=== PATIENT | female | born 1965 | race Caucasian/White ===

== ENCOUNTER → 2020-12-30 | Outpatient (CLI) | payer MEDICAID ==
[~2020-12-30] MED LIST: HOLD METFORMIN - RECEIVED CONTRAST 20 ML VIAL IV SCH; IOHEXOL 350 MG/ML 100 ML (OMNIPAQUE 350) VIAL IV ONE; NS 100 ML (IVPB) BAG IV ONE
--- NOTE | 2020-12-30 14:46 | Diagnostic Imaging Report ---
EXAMINATION: CT chest with intravenous contrast. TECHNIQUE: Multiple contiguous axial images were obtained through the chest after the uneventful administration of intravenous contrast. All CT scans use one or more of the following dose optimizing techniques: automated exposure control, MA and/or KvP adjustment based on patient size and exam type or iterative reconstruction. HISTORY: Lung cancer COMPARISON: None available. FINDINGS: There is no edema or pneumonia. No pleural effusion. No pneumothorax. No suspicious nodules. There is no axillary or supraclavicular lymphadenopathy. There is no mediastinal lymphadenopathy. Heart size is normal. There are no coronary artery calcifications. No pericardial effusion. Aorta is normal in caliber. Coronary artery bypass grafting. Limited views of the upper abdomen show changes of cholecystectomy. There are no suspicious osseus lesions. Chronic appearing mild L2 compression fracture. IMPRESSION: 1. No acute abnormality in the chest. Dictated by: Dictated on workstation # [id number]
== END ==
PROVIDERS: ATTEND Emergency Medicine
DX: C34.11 Malignant neoplasm of upper lobe, right bronchus or lung (principal)
CPT/HCPCS: 71260

== ENCOUNTER → 2021-04-27 | Outpatient (CLI) | payer MEDICAID ==
--- NOTE | 2021-04-27 15:06 | Diagnostic Imaging Report ---
INDICATION: Back pain. AP and lateral views of the lumbar spine are obtained. COMPARISON: There is no prior study for comparison. FINDINGS: There is mild dextroscoliotic change. There is a compression deformity of L1 of uncertain age. There is disc space narrowing at L2-L3 with osteophyte formation and degenerative endplate change. There is mild facet degenerative change of the lower lumbar spine. IMPRESSION: L1 compression fracture of indeterminate age. If there is focal pain in this area, MRI may be beneficial. There is underlying degenerative change at L2-L3 with disc space narrowing, osteophyte formation, and degenerative endplate change. Dictated by: Dictated on workstation # [id number]
--- NOTE | 2021-04-27 15:55 | Diagnostic Imaging Report ---
INDICATION: Pain in the neck. COMPARISON: No relevant comparison. FINDINGS: Odontoid is intact. Its relationship to the lateral masses of C1 is anatomic. There are degenerative changes to the discs, endplates, and facets, greatest at C5-C6 and C6-C7 where there is mild reversal of the normal lordosis. Vertebral statures themselves are normal. No fracture. The prevertebral space is normal. IMPRESSION: Predominantly lower cervical spondylosis results in mild reversal of lordosis, but no listhesis and no acute appearing bony abnormality. Dictated by: Dictated on workstation # [id number]
--- NOTE | 2021-04-27 15:58 | Diagnostic Imaging Report ---
INDICATION: Back pain. AP and lateral views of the thoracic spine are obtained. FINDINGS: The thoracic vertebrae appear normal in height and alignment. There is no fracture or subluxation in the thoracic region. There does appear to be a compression fracture of L1, see lumbar spine dictation to follow. IMPRESSION: Negative thoracic spine. There is an L1 compression fracture, see separate dictation of lumbar spine. Dictated by: Dictated on workstation # [id number]
--- NOTE | 2021-04-27 16:05 | Diagnostic Imaging Report ---
INDICATION: Pelvic pain and hip pain. AP pelvis obtained at 2:48 p.m. There is no prior study for comparison. FINDINGS: There is a right hip prosthesis which appears in good alignment. There is deformity of the left proximal femur, which is probably due to old injury. No definite acute fracture is seen. SI joints appear unremarkable. IMPRESSION: Chronic changes in the left proximal femur, probably due to old injury. Well-aligned right hip prosthesis. No acute appearing abnormality. Dictated by: Dictated on workstation # [id number]
== END ==
LOC: RAD 14:15
PROVIDERS: ATTEND Emergency Medicine
DX: M48.54XA Collapsed vertebra, not elsewhere classified, thoracic region, initial encounter for fracture (principal); M48.56XA Collapsed vertebra, not elsewhere classified, lumbar region, initial encounter for fracture; M47.812 Spondylosis without myelopathy or radiculopathy, cervical region; M47.816 Spondylosis without myelopathy or radiculopathy, lumbar region; M51.36 Other intervertebral disc degeneration, lumbar region; M40.40 Postural lordosis, site unspecified; M25.78 Osteophyte, vertebrae; Z96.641 Presence of right artificial hip joint
CPT/HCPCS: 72040; 72070; 72100; 72170